=== PATIENT | male | born 1990 | race Caucasian/White ===

== ENCOUNTER 2020-04-25 19:22 | Emergency (ER) | payer BC, OTHER ==
[~2020-04-25] VITALS: Ht 180.3 cm; Wt 86.2 kg
[~2020-04-25 19:22] MED LIST: ALBU90OI INH; Acetaminophen-1 EAC1 PO; Amoxicillin500 MG PO; CYCL10 PO; Cleocin HCl150 MG PO; DIVA500EC PO; HYDACE5 PO; IBUP800 PO; LEVE500 PO; Naprosyn500 MG PO; Norco 5-325 Ta1 EACH PO; PENVK500 PO; Percocet 5-3251 EACH PO; Prednisone10 MG PO; Prednisone20 MG PO; TRAM50 PO; Veetids 500500 MG PO
[2020-04-25] MEDS ORDERED: IBUP800 PO (19:30)
[2020-04-25] MEDS ORDERED: Amoxicillin500 MG PO (19:30)
== END 2020-04-25 19:34 | disposition home or self-care (01) ==
LOC: ER 19:22 → MEDS 23:41 → ER 23:41
DX: H66.92 Otitis media, unspecified, left ear (principal); J02.9 Acute pharyngitis, unspecified; G40.909 Epilepsy, unspecified, not intractable, without status epilepticus; Z79.899 Other long term (current) drug therapy
CPT/HCPCS: 99282